=== PATIENT | female | born 1985 | race Two or more races ===

== ENCOUNTER 2017-09-26 14:53 | Emergency (ER) | payer SELFPAY ==
[~2017-09-26] VITALS: Ht 147.3 cm; Wt 86.2 kg
[~2017-09-26 14:53] MED LIST: IBUP-1007 PO
[2017-09-26 15:14] LABS: BILIRUBIN,URINE NEGATIVE (NEG); GLUCOSE,URINE NEGATIVE (NEG); NITRITE,URINE NEGATIVE (NEG); PROTEIN,URINE 30 mg/dL (NEG-TRACE)
[2017-09-26 15:26] LABS: BACTERIA,URINE FEW /HPF (0-FEW); RBC,URINE TNTC /HPF (0-2); SQUAMOUS EPITHELIAL CELL,UR FEW /LPF
--- NOTE | 2017-09-26 16:26 | PHYS DOC ---
Past Medical History Past Medical History: Other Additional Past Medical Histor: 'diabetes with ' Past Surgical History: No Surgical History Alcohol Use: None Drug Use: None Adult General Chief Complaint Chief Complaint: VAGINAL BLEEDING HPI HPI Patient is a 31 year old female who presents with 1 day history of mild vaginal bleeding last menstrual period was early August 2017 she is Ab1 with mild cramping suprapubic pelvic. Some nausea no vomiting some diarrhea no fever. No dysuria or frequency or flank pain. Review of Systems Review of Systems Constitutional: Denies fever or chills [] Eyes: Denies change in visual acuity, redness, or eye pain [] HENT: Denies nasal congestion or sore throat [] Respiratory: Denies cough or shortness of breath [] Cardiovascular: No additional information not addressed in HPI [] GI: Denies abdominal pain, nausea, vomiting, bloody stools or diarrhea [] : Denies dysuria or hematuria [] Musculoskeletal: Denies back pain or joint pain [] Integument: Denies rash or skin lesions [] Neurologic: Denies headache, focal weakness or sensory changes [] Endocrine: Denies polyuria or polydipsia [] All other systems were reviewed and found to be within normal limits, except as documented in this note. Allergies Allergies Allergies Coded Allergies Type Severity Reaction Last Updated Verified No Known Drug Allergies 08/01/15 No Physical Exam Physical Exam Constitutional: Well developed, well nourished, no acute distress, non-toxic appearance. [] HENT: Normocephalic, atraumatic, bilateral external ears normal, oropharynx moist, no oral exudates, nose normal. [] Eyes: PERRLA, EOMI, conjunctiva normal, no discharge. [] Neck: Normal range of motion, no tenderness, supple, no stridor. [] Cardiovascular:Heart rate regular rhythm, no murmur [] Lungs & Thorax: Bilateral breath sounds clear to auscultation [] Abdomen: Bowel sounds normal, soft, minimal suprapubic tenderness, no masses, no pulsatile masses. Pelvic exam: [Sternal exam is normal no lesions, speculum exam no active bleeding there is some blood in the vaginal vault cervix is closed nontender the bimanual exam.] Skin: Warm, dry, no erythema, no rash. [] Back: No tenderness, no CVA tenderness. [] Extremities: No tenderness, no cyanosis, no clubbing, ROM intact, no edema. [] Neurologic: Alert and oriented X 3, normal motor function, normal sensory function, no focal deficits noted. [] Psychologic: Affect normal, judgement normal, mood normal. [] Current Patient Data Vital Signs Vital Signs Date Time Temp Pulse Resp B/P (MAP) Pulse Ox O2 Delivery O2 Flow Rate FiO2 09/26/17 19:09 64 20 101/69 (80) 99 Room Air 09/26/17 15:07 98.0 98.0 Lab Values Laboratory Tests Test 09/26/17 15:06 09/26/17 15:07 09/26/17 16:20 POC Urine HCG, Qualitative Hcg negative (Negative) Urine Collection Type Void Urine Color Red Urine Clarity Cloudy Urine pH 6.0 Urine Specific [place] 1.025 Urine Protein 30 mg/dL (NEG-TRACE) Urine Glucose (UA) Negative mg/dL (NEG) Urine Ketones (Stick) Trace mg/dL (NEG) Urine Blood Large (NEG) Urine Nitrite Negative (NEG) Urine Bilirubin Negative (NEG) Urine Urobilinogen Dipstick 1.0 mg/dL (0.2 mg/dL) Urine Leukocyte Esterase Moderate (NEG) Urine RBC Tntc /HPF (0-2) Urine WBC 1-4 /HPF (0-4) Urine Squamous Epithelial Cells Few /LPF Urine Bacteria Few /HPF (0-FEW) Urine Mucus Slight /LPF White Blood Count 9.5 x10^3/uL (4.0-11.0) Red Blood Count 4.81 x10^6/uL (3.50-5.40) Hemoglobin 11.9 g/dL (12.0-15.5) L Hematocrit 37.2 % (36.0-47.0) Mean Corpuscular Volume 77 fL (79-100) L Mean Corpuscular Hemoglobin 25 pg (25-35) Mean Corpuscular Hemoglobin Concent 32 g/dL (31-37) Red Cell Distribution Width 14.6 % (11.5-14.5) H Platelet Count 367 x10^3/uL (140-400) Neutrophils (%) (Auto) 60 % (31-73) Lymphocytes (%) (Auto) 33 % (24-48) Monocytes (%) (Auto) 6 % (0-9) Eosinophils (%) (Auto) 1 % (0-3) Basophils (%) (Auto) 1 % (0-3) Neutrophils # (Auto) 5.7 x10^3uL (1.8-7.7) Lymphocytes # (Auto) 3.1 x10^3/uL (1.0-4.8) Monocytes # (Auto) 0.5 x10^3/uL (0.0-1.1) Eosinophils # (Auto) 0.1 x10^3/uL (0.0-0.7) Basophils # (Auto) 0.1 x10^3/uL (0.0-0.2) Maternal Serum HCG Beta Subunit < 1 mIU/mL (0-5) Laboratory Tests 09/26/17 16:20 Microbiology 09/26/17 Wet Prep - Final, Complete EKG EKG [] Radiology/Procedures Radiology/Procedures Pelvic ultrasound[ no intrauterine ] Course & Med Decision Making Course & Med Decision Making Pertinent Labs and Imaging studies reviewed. (See chart for details) vaginal bleeding plan standard workup CBC Rh and quantitative hCG and pelvic sonogram and pelvic exam. [Turns out the patient is not and the ultrasound was unremarkable. Patient appears to have dysfunctional uterine bleeding and is stable for outpatient management.] Dragon Disclaimer Dragon Disclaimer This electronic medical record was generated, in whole or in part, using a voice recognition dictation system. Departure Departure Impression: Primary Impression: Dysfunctional uterine bleeding Disposition: HOME, SELF-CARE Condition: STABLE Referrals: NO PCP (PCP) Patient Instructions: Uterine Bleeding, Dysfunctional, [id number] Additional Instructions: Please follow-up with a local primary care physician if further concerns or bleeding continues. SCARLETT CANTRELL MD Sep 26, 2017 16:25
[2017-09-26 16:30] LABS: BASO # 0.1 x10^3/uL (0.0-0.2); BASO % 1 % (0-3); EOS % 1 % (0-3); HEMATOCRIT 37.2 % (36.0-47.0); HEMOGLOBIN 11.9 g/dL (12.0-15.5); LYMPH # 3.1 x10^3/uL (1.0-4.8); LYMPH % 33 % (24-48); MEAN CORPUSCULAR HEMOGLOBIN 25 pg (25-35); MEAN CORPUSCULAR HGB CONC 32 g/dL (31-37); MEAN CORPUSCULAR VOLUME 77 fL (79-100); MONO % 6 % (0-9); NEUT % 60 % (31-73); PLATELET COUNT 367 x10^3/uL (140-400); RED BLOOD COUNT 4.81 x10^6/uL (3.50-5.40); RED CELL DISTRIBUTION WIDTH 14.6 % (11.5-14.5); WHITE BLOOD COUNT 9.5 x10^3/uL (4.0-11.0)
--- NOTE | 2017-09-26 18:37 | RAD ---
Ultrasound of the pelvis INDICATION: Heavy vaginal bleeding. LMP unsure. . Technique: Grayscale, color Doppler and spectral waveform ultrasound images of the pelvis obtained. COMPARISON: None FINDINGS: The uterus measures 13 x 10 x 8 cm (longitudinal, AP, transverse). Hypoechoic 1 cm lesion in the cervix noted without blood flow most likely nabothian cyst. The right ovary measures 2.6 x 1.6 x 1.9 cm and demonstrate evidence of blood flow. The left ovary measures 2.5 x 2.4 x 2.0 cm with evidence of blood flow. No evidence of gestation sac in the uterus. Endometrium is heterogenous in appearance and is markedly thickened measuring 6.7 cm without vascularity. No identified. IMPRESSION: 1. No intrauterine gestation sac visualized. Differential diagnoses includes early , ectopic or complete . Clinically correlate with serum beta-hCG. 2. Heterogenous and thickened endometrium without internal vascularity may represent a hematoma or endometrial hyperplasia or submucosal fibroid. 3. Cystic structure in the cervix most likely nabothian cyst. Although ectopic gestation sac not completely ruled out. Follow-up ultrasound recommended. Electronically signed by: Tiburcio Hadley DO (09/26/2017 6:34 PM) [facility]
[2017-09-26 19:09] VITALS: BP 101/69
== END 2017-09-26 19:41 | disposition home or self-care (01) ==
LOC: ER 14:53
DX: N93.8 Other specified abnormal uterine and vaginal bleeding (principal)
CPT/HCPCS: 76801; 76817; 81001; 81025; 84702; 85025; 86900; 86901; 87086; 99285; Q0111; 36415; 87491; 87591

== ENCOUNTER 2017-10-14 16:43 | Emergency (ER) | payer SELFPAY ==
[~2017-10-14] VITALS: Ht 160 cm; Wt 86.2 kg
--- NOTE | 2017-10-14 17:50 | PHYS DOC ---
Past Medical History Past Medical History: Other Additional Past Medical Histor: 'diabetes with ' Past Surgical History: No Surgical History Alcohol Use: None Drug Use: None Adult General Chief Complaint Chief Complaint: VAGINAL PROBLEM HPI HPI Patient is a 31 year old female who presents with vaginal bleeding. She was seen here September 26 with vaginal bleeding and was told she was not and had a hemoglobin 11.9. She states she's been having suprapubic pain that goes to her back. She feels lightheaded and dizzy she begun through at least 4 pads a day over the last 2 days. She states before that she had minimal bleeding and discomfort. She states she's not followed up with an OB/ [facility] physician since her visit here over month ago. She's felt lightheaded but she's not had any syncopal episodes, chest pain or shortness of breath. Review of Systems Review of Systems Constitutional: Denies fever or chills [] Eyes: Denies change in visual acuity, redness, or eye pain [] HENT: Denies nasal congestion or sore throat [] Respiratory: Denies cough or shortness of breath [] Cardiovascular: No additional information not addressed in HPI [] GI: Positive for abdominal pain, vaginal bleeding, Denies nausea, vomiting, bloody stools or diarrhea [] : Denies dysuria or hematuria [] Musculoskeletal: Denies back pain or joint pain [] Integument: Denies rash or skin lesions [] Neurologic: Denies headache, focal weakness or sensory changes [] Endocrine: Denies polyuria or polydipsia [] All other systems were reviewed and found to be within normal limits, except as documented in this note. Allergies Allergies Allergies Coded Allergies Type Severity Reaction Last Updated Verified No Known Drug Allergies 08/01/15 No Physical Exam Physical Exam Constitutional: Well developed, well nourished, no acute distress, non-toxic appearance. [] HENT: Normocephalic, atraumatic, bilateral external ears normal, oropharynx moist, no oral exudates, nose normal. [] Eyes: PERRLA, EOMI, conjunctiva normal, no discharge. [] Neck: Normal range of motion, no tenderness, supple, no stridor. 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 [] Skin: Warm, dry, no erythema, no rash. [] Back: No tenderness, no CVA tenderness. [] Extremities: No tenderness, no cyanosis, no clubbing, ROM intact, no edema. [] Neurologic: Alert and oriented X 3, normal motor function, normal sensory function, no focal deficits noted. [] Psychologic: Affect normal, judgement normal, mood normal. [] Current Patient Data Vital Signs Vital Signs Date Time Temp Pulse Resp B/P (MAP) Pulse Ox O2 Delivery O2 Flow Rate FiO2 10/14/17 23:55 67 130/69 (89) 98 Room Air 10/14/17 17:58 97.9 20 97.9 Lab Values Laboratory Tests Test 10/14/17 18:27 10/14/17 18:44 10/14/17 18:45 White Blood Count 8.1 x10^3/uL (4.0-11.0) Red Blood Count 4.56 x10^6/uL (3.50-5.40) Hemoglobin 11.0 g/dL (12.0-15.5) L Hematocrit 34.4 % (36.0-47.0) L Mean Corpuscular Volume 76 fL (79-100) L Mean Corpuscular Hemoglobin 24 pg (25-35) L Mean Corpuscular Hemoglobin Concent 32 g/dL (31-37) Red Cell Distribution Width 15.0 % (11.5-14.5) H Platelet Count 308 x10^3/uL (140-400) Neutrophils (%) (Auto) 55 % (31-73) Lymphocytes (%) (Auto) 38 % (24-48) Monocytes (%) (Auto) 5 % (0-9) Eosinophils (%) (Auto) 1 % (0-3) Basophils (%) (Auto) 1 % (0-3) Neutrophils # (Auto) 4.4 x10^3uL (1.8-7.7) Lymphocytes # (Auto) 3.1 x10^3/uL (1.0-4.8) Monocytes # (Auto) 0.4 x10^3/uL (0.0-1.1) Eosinophils # (Auto) 0.1 x10^3/uL (0.0-0.7) Basophils # (Auto) 0.0 x10^3/uL (0.0-0.2) Maternal Serum HCG Beta Subunit 1 mIU/mL (0-5) Sodium Level 142 mmol/L (136-145) Potassium Level 3.7 mmol/L (3.5-5.1) Chloride Level 107 mmol/L (98-107) Carbon Dioxide Level 28 mmol/L (21-32) Anion Gap 7 (6-14) Blood Urea Nitrogen 12 mg/dL (7-20) Creatinine 0.6 mg/dL (0.6-1.0) Estimated GFR (Cockcroft-Gault) 115.1 BUN/Creatinine Ratio 20 (6-20) Glucose Level 99 mg/dL (70-99) Calcium Level 8.6 mg/dL (8.5-10.1) Total Bilirubin 0.2 mg/dL (0.2-1.0) Aspartate Amino Transferase (AST) 22 U/L (15-37) Alanine Aminotransferase (ALT) 31 U/L (14-59) Alkaline Phosphatase 69 U/L (46-116) Total Protein 7.7 g/dL (6.4-8.2) Albumin 3.7 g/dL (3.4-5.0) Albumin/Globulin Ratio 0.9 (1.0-1.7) L POC Urine HCG, Qualitative Hcg negative (Negative) Urine Collection Type Unknown Urine Color Yellow Urine Clarity Clear Urine pH 7.0 Urine Specific [place] 1.025 Urine Protein Negative mg/dL (NEG-TRACE) Urine Glucose (UA) Negative mg/dL (NEG) Urine Ketones (Stick) Negative mg/dL (NEG) Urine Blood Large (NEG) Urine Nitrite Negative (NEG) Urine Bilirubin Negative (NEG) Urine Urobilinogen Dipstick 1.0 mg/dL (0.2 mg/dL) Urine Leukocyte Esterase Small (NEG) Urine RBC >40 /HPF (0-2) Urine WBC 1-4 /HPF (0-4) Urine Squamous Epithelial Cells Mod /LPF Urine Bacteria Few /HPF (0-FEW) Urine Mucus Mod /LPF Laboratory Tests 10/14/17 18:27 Laboratory Tests 10/14/17 18:27 Microbiology 10/14/17 Wet Prep - Final, Complete Microbiology 10/14/17 Wet Prep - Final, Complete EKG EKG [] Radiology/Procedures Radiology/Procedures [] Course & Med Decision Making Course & Med Decision Making Pertinent Labs and Imaging studies reviewed. (See chart for details) Patient be checked out to Dr. Chente Lewis Disclaimer Joshua Disclaimer This electronic medical record was generated, in whole or in part, using a voice recognition dictation system. Departure Departure Impression: Primary Impression: Vaginal bleeding Additional Impressions: Uterine mass Mass of uterus determined by ultrasound Disposition: HOME, SELF-CARE Condition: STABLE Referrals: NO PCP (PCP) LOBO GAALN MD Patient Instructions: Uterine Bleeding, Dysfunctional, [id number] Additional Instructions: Thank you for allowing us to participate in your care today. Followup with our OB DrEduardo as above in 2-3 days for uterine mass. Call your Primary Doctor tomorrow and inform them of your visit today. If you do not have a primary care provider you can ask for a list of our primary care providers. Return to the emergency department you have any new or concerning findings. This should be evaluated by the primary care physician and any necessary consulting services for continued management within a few days after discharge. Return to emergency room if you have any new or concerning symptoms including but not limited to fever, chills, nausea, vomiting, intractable pain, any new rashes, chest pain, shortness of air, uncontrolled bleeding, difficulty breathing, and/or vision loss. You may have been prescribed medication that can change in your level of thinking and ability to operate machinery. These medications include hydrocodone and Ativan. Also, Benadryl has been known to do this as well. Be sure to check with your pharmacist and ask if the medications you've prescribed can affect your level of consciousness. I recommend not operating heavy machinery or driving while on medication such as these. Assessment/Plan Assessment/Plan 31-year-old female presenting to the emergency department today with vaginal bleeding. Patient was signed out to me at 9 PM. The patient presented with suprapubic abdominal pain with intermittent vaginal bleeding. She reports having a positive test at home however here she is not . Upon arrival the patient is afebrile with a normal heart rate. On physical exam she has a soft nontender abdomen. Negative McBurney's point. Negative Ware sign. Blood work shows mild baseline anemia. Urinalysis shows blood in the urine likely contaminated. Chemistry panel unremarkable. Urine test negative. Ultrasound shows uterine mass. I discussed the case with Dr. Prescott who agrees with outpatient follow-up. The patient was in discharged home to follow-up with Dr. Prescott. The patient was then discharged home in stable condition to follow up in the next 2-3 days. They were to return if their symptoms worsened or if they were concerned for any reason. [id number] discharge instructions and return precautions were given. Patient's questions were answered to their satisfaction. Patient is comfortable plan. Problems: Problem Qualifiers CHRISTINA ARIZMENDI MD Oct 14, 2017 17:50 FRANK RETANA MD Oct 14, 2017 22:53
[2017-10-14 18:38] LABS: BASO % 1 % (0-3); EOS % 1 % (0-3); HEMATOCRIT 34.4 % (36.0-47.0); LYMPH # 3.1 x10^3/uL (1.0-4.8); LYMPH % 38 % (24-48); MEAN CORPUSCULAR HEMOGLOBIN 24 pg (25-35); MEAN CORPUSCULAR HGB CONC 32 g/dL (31-37); MEAN CORPUSCULAR VOLUME 76 fL (79-100); MONO % 5 % (0-9); NEUT % 55 % (31-73); PLATELET COUNT 308 x10^3/uL (140-400); RED BLOOD COUNT 4.56 x10^6/uL (3.50-5.40); WHITE BLOOD COUNT 8.1 x10^3/uL (4.0-11.0)
[2017-10-14 18:58] LABS: BILIRUBIN,URINE NEGATIVE (NEG); GLUCOSE,URINE NEGATIVE (NEG); NITRITE,URINE NEGATIVE (NEG); PROTEIN,URINE NEGATIVE (NEG-TRACE)
[2017-10-14 19:03] LABS: BACTERIA,URINE FEW /HPF (0-FEW); RBC,URINE >40 /HPF (0-2); SQUAMOUS EPITHELIAL CELL,UR MOD /LPF
[2017-10-14 19:06] LABS: CALCIUM 8.6 mg/dL (8.5-10.1); CREATININE 0.6 mg/dL (0.6-1.0); GFR 115.1; POTASSIUM 3.7 mmol/L (3.5-5.1)
[2017-10-14 19:11] LABS: ALBUMIN 3.7 g/dL (3.4-5.0); ALBUMIN/GLOBULIN RATIO 0.9 (1.0-1.7); TOTAL BILIRUBIN 0.2 mg/dL (0.2-1.0); TOTAL PROTEIN 7.7 g/dL (6.4-8.2)
--- NOTE | 2017-10-14 21:28 | RAD ---
Ultrasound pelvis complete and transvaginal ultrasound pelvis HISTORY: Pelvic pain and negative test Sonographic examination of the pelvis was performed by transabdominal and endovaginal technique and multiple static images were obtained. Ultrasound pelvis complete transabdominal: The uterus is bulky and measures 10.9 x 9.1 x 8.0 cm. The endometrium was not visualized. Transvaginal ultrasound pelvis: There is a nabothian cyst in the cervix. There is a heterogeneous of avascular mass in the uterus that measures 7.7 x 6.6 x 5.4 cm. The ovaries appear normal normal blood flow. The right ovary measures 3.3 x 2.0 x 1.8 cm. Left ovary measures 2.2 x 1.5 0.5 cm. There is no free fluid. IMPRESSION: Intrauterine mass could be a fibroid or leiomyosarcoma. Recommend gynecologic consultation. Electronically signed by: Syd Pillai III, MD (10/14/2017 9:25 PM) [facility]
[2017-10-14 23:55] VITALS: BP 130/69
== END 2017-10-14 23:52 | disposition home or self-care (01) ==
LOC: ER 16:43
DX: N93.9 Abnormal uterine and vaginal bleeding, unspecified (principal); N85.8 Other specified noninflammatory disorders of uterus; R10.30 Lower abdominal pain, unspecified; R42 Dizziness and giddiness
CPT/HCPCS: 36415; 76856; 80053; 81001; 81025; 84702; 85025; 86850; 86900; 86901; 87086; 87491; 87591; 99285; Q0111

== ENCOUNTER 2018-03-13 09:49 | Emergency (ER) | payer SELFPAY ==
[2018-03-13] MEDS ORDERED: FLUORESCEIN OPHTH TEST STRIP. OU (10:15)
[2018-03-13] MEDS ORDERED: TETRACAINE 0.5% OPHTH SOLUTION 4ML BOTTLE. OU (10:15)
== END 2018-03-13 10:58 | disposition home or self-care (01) ==
LOC: ER 09:49
DX: H10.11 Acute atopic conjunctivitis, right eye (principal); J30.9 Allergic rhinitis, unspecified
CPT/HCPCS: 99283

== ENCOUNTER 2018-04-14 13:27 | Emergency (ER) | payer SELFPAY ==
[2018-04-14 14:25] LABS: URINE HCG POC HCG NEGATIVE (Negative)
[2018-04-14 14:26] LABS: BILIRUBIN,URINE NEGATIVE (NEG); CLARITY,URINE CLEAR; COLOR,URINE YELLOW; GLUCOSE,URINE NEGATIVE (NEG); NITRITE,URINE NEGATIVE (NEG); PROTEIN,URINE 100 mg/dL (NEG-TRACE)
[2018-04-14 14:27] LABS: NEGATIVE OBC STREP NEG; POSITIVE OBC STREP POS
[2018-04-14] MEDS: ACETAMINOPHEN 500 MG TABLET PO (14:27)
[2018-04-14] MEDS: IBUPROFEN 800 MG TABLET. PO (14:28)
[2018-04-14 14:43] LABS: RBC,URINE TNTC /HPF (0-2); WBC,URINE 20-40 /HPF (0-4)
[2018-04-14 14:44] LABS: BACTERIA,URINE MODERATE /HPF (0-FEW); SQUAMOUS EPITHELIAL CELL,UR MANY /LPF
== END 2018-04-14 15:36 | disposition home or self-care (01) ==
LOC: ER 13:27
DX: J02.0 Streptococcal pharyngitis (principal); B95.5 Unspecified streptococcus as the cause of diseases classified elsewhere
CPT/HCPCS: 71046; 81001; 81025; 87086; 87186; 87880; 99285-25